=== PATIENT | female | born 1980 | race Caucasian/White ===

== ENCOUNTER 2017-12-24 22:12 | Emergency (ER) | payer OTHER ==
--- NOTE | 2017-12-24 22:50 | RAD ---
RIGHT ANKLE: 12/24/17 Three views. HISTORY: Injury with pain to the ankle. Mild soft tissue swelling is seen laterally. No evidence of fracture. There is a plantar enthesophyte from the calcaneus. IMPRESSION: No acute fracture. POS: [facility]
[2017-12-24] MEDS ORDERED: Ibuprofen 800 MG TAB ONE (23:13)
== END 2017-12-24 23:30 | disposition home or self-care (01) ==
LOC: SCSER 22:12
DX: S93.402A Sprain of unspecified ligament of left ankle, initial encounter (principal); F32.9 Major depressive disorder, single episode, unspecified; Z79.899 Other long term (current) drug therapy; X50.1XXA Overexertion from prolonged static or awkward postures, initial encounter; Y93.44 Activity, trampolining

== ENCOUNTER 2018-01-06 10:41 | Outpatient (CLI) | payer OTHER ==
--- NOTE | 2018-01-06 12:16 | RAD ---
RIGHT ANKLE 4 VIEWS: Date: 01/06/18 HISTORY: Right ankle injury. COMPARISON: 12/24/17. FINDINGS: Ankle mortise is intact. Minimal osteophytosis. No acute fracture or dislocation. Soft tissue swellin g overlies the medial malleolus. No acute fracture or dislocation. Small plantar heel spur. IMPRESSION: No acute osseous abnormalities are demonstrated. POS: [facility]
== END 2018-01-06 10:42 | disposition home or self-care (01) ==
LOC: SCSRAD 10:41
PROVIDERS: ATTEND Nurse Practitioner Family
DX: M25.571 Pain in right ankle and joints of right foot (principal)